=== PATIENT | female | born 1955 | race Caucasian/White ===

== ENCOUNTER → 2020-08-10 | Outpatient (CLI) | payer OTHER | LOC: M LABSMTC 10:23 | PROVIDERS: ATTEND Orthopaedic Surgery | DX: Z01.812 Encounter for preprocedural laboratory examination (principal); Z20.828 Contact with and (suspected) exposure to other viral communicable diseases ==

== ENCOUNTER → 2020-08-10 | Outpatient (CLI) | payer OTHER ==
[2020-08-10 12:22] LABS: BLOOD UREA NITROGEN 17 MG/DL (7-18); CALCIUM LEVEL 9.2 MG/DL (8.8-10.2); CARBON DIOXIDE LEVEL 25 MEQ/L (21-32); CHLORIDE LEVEL 108 MEQ/L (98-107); CREATININE FOR GFR 0.85 MG/DL (0.55-1.30); GLOMERULAR FILTRATION RATE > 60.0 (>45); GLUCOSE, FASTING 186 MG/DL (70-100); POTASSIUM SERUM 4.7 MEQ/L (3.5-5.1); SODIUM LEVEL 139 MEQ/L (136-145)
--- NOTE | 2020-08-11 15:11 | ECGEPIP ---
[facility] Test Date: 2020-08-10 Pat Name: JULIA RAMEY Department: Room: - Gender: Female Data Technical Lead: CHIQUIS : 1955 Requested By: Ruperto Garcia Order Number: [id number] Reading MD: Hans Bobby Measurements Intervals [place] Rate: 81 P: 60 HI: 189 QRS: -18 QRSD: 83 T: 59 QT: 369 QTc: 430 Interpretive Statements SINUS RHYTHM BORDERLINE LEFT AXIS DEVIATION Poor R wave progression No prior tracing in the system Electronically Signed on 08-11-2020 15:11:17 EST by Hans Bobby
== END ==
LOC: M LAB 11:00
PROVIDERS: ATTEND Orthopaedic Surgery
DX: Z01.810 Encounter for preprocedural cardiovascular examination (principal); Z79.899 Other long term (current) drug therapy; R94.31 Abnormal electrocardiogram [ECG] [EKG]